=== PATIENT | female | born 1990 | race Caucasian/White ===

== ENCOUNTER 2020-01-25 10:15 | Emergency (ER) | payer OTHER ==
[~2020-01-25] VITALS: Ht 165.1 cm; Wt 92.1 kg
[2020-01-25 10:26] VITALS: BP 131/85
--- NOTE | 2020-01-25 10:29 | NUR ---
PT AMBULATED TO BED 3, STEADY GAIT.
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
--- NOTE | 2020-01-25 10:39 | NUR ---
VSS. PULSE 96 AND 02 100.
[2020-01-25 13:05] VITALS: BP 131/85
--- NOTE | 2020-01-25 13:05 | NUR ---
Patient discharged with v/s stable. Written and verbal after care instructions given and explained. Patient verbalized understanding. Ambulatory with steady gait. All questions addressed prior to discharge. Advised to follow up with PMD.
== END 2020-01-25 13:05 | disposition home or self-care (01) ==
LOC: MED 10:15
DX: B35.4 Tinea corporis (principal); Z98.890 Other specified postprocedural states
CPT/HCPCS: 99281